=== PATIENT | male | born 1955 | race Two or more races ===

== ENCOUNTER 2021-04-07 01:03 | Emergency (ER) | payer MEDICAID, OTHER ==
[~2021-04-07] VITALS: Ht 182.9 cm; Wt 83.9 kg
[2021-04-07] MEDS ORDERED: ONDA4TAB5 PO (01:28)
[2021-04-07] MEDS ORDERED: IPRA0.2S48 NEB (01:28)
[2021-04-07] MEDS ORDERED: METF-442 PO (01:28)
[2021-04-07] MEDS ORDERED: ACET-2154 PO ×2 (01:28)
[2021-04-07] MEDS ORDERED: ASPI81TA31 PO (01:28)
[2021-04-07] MEDS ORDERED: AMAN100T PO (01:28)
[2021-04-07] MEDS ORDERED: HYDR-4077 PO (01:28)
[2021-04-07] MEDS ORDERED: ALBU2.5V38 NEB (01:28)
[2021-04-07] MEDS ORDERED: ATOR80TA PO ×2 (01:28)
[2021-04-07] MEDS ORDERED: CLON0.3P TD (01:28)
[2021-04-07] MEDS ORDERED: DOCU100C36 PO (01:28)
[2021-04-07] MEDS ORDERED: DEXT1LOZ24 PO (01:28)
[2021-04-07] MEDS ORDERED: HYDR-894 PO (01:28)
[2021-04-07] MEDS ORDERED: PANT40TA2 PO (01:28)
[2021-04-07] MEDS ORDERED: NIFE30TA2 PO (01:28)
[2021-04-07] MEDS ORDERED: ASCO500T10 PO (01:28)
[2021-04-07 01:55] LABS: BASOPHILS # (AUTO) 0.1 K/uL (0.0-8.0); BASOPHILS % (AUTO) 0.4 % (0.0-2.0); EOSINOPHILS # (AUTO) 0.1 K/uL (0.0-0.7); HEMATOCRIT 40.3 % (36.7-47.1); HEMOGLOBIN 12.8 g/dL (12.5-16.3); LYMPHOCYTES # (AUTO) 1.8 K/uL (20.0-40.0); LYMPHOCYTES % (AUTO) 12.9 % (20.5-51.5); MEAN CORPUSCULAR HEMOGLOBIN 23.1 uug (23.8-33.4); MEAN CORPUSCULAR HGB CONC 32 g/dL (32.5-36.3); MEAN CORPUSCULAR VOLUME 72.5 fL (73.0-96.2); MONOCYTES # (AUTO) 0.9 K/uL (2.0-10.0); MONOCYTES % (AUTO) 6.4 % (0.0-11.0); NEUTROPHILS # (AUTO) 11.2 K/uL (1.8-8.9); NEUTROPHILS % (AUTO) 79.3 % (38.5-71.5); PLATELET COUNT (AUTO) 328 K/uL (152-348); RED BLOOD CELL COUNT(AUTO) 5.56 MIL/uL (4.06-5.63); WHITE BLOOD COUNT (AUTO) 14.2 K/uL (3.6-10.2)
[2021-04-07 01:59] LABS: CREATININE 1.4 mg/dL (0.6-1.3); POTASSIUM 3.7 mmol/L (3.5-5.1)
[2021-04-07 02:05] LABS: BILIRUBIN,DIRECT 0.2 mg/dL (0.0-0.2); BILIRUBIN,TOTAL 0.6 mg/dL (0.2-1.0); TOTAL PROTEIN, SERUM 7.5 g/dL (6.4-8.2)
[2021-04-07] MEDS ORDERED: VANCOMYCIN IV 1,000 MG in IV DEXTROSE 5% 250 ML IV ONE (02:15)
[2021-04-07] MEDS ORDERED: PIPERACILLIN SODIUM/TAZOBACTAM 4.5 G in IV DEXTROSE 5% 50 ML IV SCH (02:15)
--- NOTE | 2021-04-07 02:21 | NUR ---
Enoc from lab calls with result GERARD Serra MD made aware
[2021-04-07] MEDS ORDERED: PIPERACILLIN/TAZO 4.5 GM VIAL IV ONE (02:29)
[2021-04-07] MEDS ORDERED: DEXAMETHASONE SOD PHOSPHATE 10 MG INJ ONE (02:40)
[2021-04-07] MEDS ORDERED: VANCOMYCIN IV 200 ML ONE (02:41)
--- NOTE | 2021-04-07 02:43 | NUR ---
Patient to be transferred to [facility] for insurance reasons.
--- NOTE | 2021-04-07 02:44 | NUR ---
Dr. Capps from [facility] has accepted patient for transfer. Pending call from family caseworker to arrange transport.
[2021-04-07] MEDS ORDERED: DEXAMETHASONE SOD PHOSPHATE 4 MG INJ IV ONE (02:45)
--- NOTE | 2021-04-07 03:11 | NUR ---
Received call back from Nuria Stringer, case packer, patient going to [facility], room 601, number to report to , Dr. Capps is the accepting MD.
--- NOTE | 2021-04-07 03:25 | NUR ---
[facility] has accepted transfer of patient to [facility]. ETA 90 minutes - 2 hours
--- NOTE | 2021-04-07 03:31 | NUR ---
Report given to Lilo BRANTLEY at [facility]
--- NOTE | 2021-04-07 04:14 | NUR ---
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 Report given to motor grader operator.
--- NOTE | 2021-04-07 04:20 | NUR ---
Paula continued in Transport. 50mL left in bag.
--- NOTE | 2021-04-07 04:25 | NUR ---
Patient has been picked up by tinware lithograph press operator. Stable condition. VSS. Old record with tinware lithograph press operator.
== END 2021-04-07 04:28 | disposition short-term general hospital (02) ==
LOC: ER 01:06
DX: U07.1 COVID-19 (principal); J12.82 Pneumonia due to coronavirus disease 2019; E11.9 Type 2 diabetes mellitus without complications; K21.9 Gastro-esophageal reflux disease without esophagitis; F41.9 Anxiety disorder, unspecified; Z86.73 Personal history of transient ischemic attack (TIA), and cerebral infarction without residual deficits; G20 Parkinson's disease; G81.94 Hemiplegia, unspecified affecting left nondominant side; J44.0 Chronic obstructive pulmonary disease with (acute) lower respiratory infection; I10 Essential (primary) hypertension; Z79.84 Long term (current) use of oral hypoglycemic drugs; Z79.82 Long term (current) use of aspirin; Z79.899 Other long term (current) drug therapy
CPT/HCPCS: 36415; 71045; 80048; 80076; 85025; 86403; 87040; 87070; 87426; 96365; 96366; 96368; 96375; 99285; J1100; J2543; J3370; J7060; A4663; J7030